=== PATIENT | female | born 1985 | race Two or more races ===

== ENCOUNTER 2021-10-21 22:32 | Emergency (ER) | payer OTHER ==
[~2021-10-21] VITALS: Ht 157.5 cm; Wt 75.0 kg
[2021-10-21 23:00] VITALS: BP 145/79
--- NOTE | 2021-10-21 23:24 | PHYS DOC ---
General Adult EDM: Chief Complaint: KNEE INJURY HPI: HPI: Patient is a 36 year old female who presents the ED today complaining of right elbow pain, right forearm pain, right knee pain, symptoms began after being tackled in baseball. Patient states she was at the [employer] game, she tried catching a fowl ball and 5 boys tackled her. Patient denies any loss of consciousness. States most of her pain on the right knee is on ambulation as well as range of motion. Reports pain on the right elbow and forearm on range of motion. Denies anything specifically relieving the pain. Review of Systems: Review of Systems: Constitutional: Denies fever or chills. [] Musculoskeletal: Reports right elbow pain, right forearm pain, right knee pain Integument: Denies rash. [] Neurologic: Denies headache, focal weakness or sensory changes. [] Psychiatric: Denies depression or anxiety. [] Heart Score: C/O Chest Pain: N/A Risk Factors: Risk Factors: DM, Current or recent (<one month) smoker, HTN, HLP, family hi story of CAD, obesity. Risk Scores: Score 0 - 3: 2.5% MACE over next 6 weeks - Discharge Home Score 4 - 6: 20.3% MACE over next 6 weeks - Admit for Clinical Observation Score 7 - 10: 72.7% MACE over next 6 weeks - Early Invasive Strategies Current Medications: Current Medications Medications (Trade) Dose Ordered Sig/Saroj Start Time Stop Time Status Last Admin Dose Admin Acetaminophen/ Hydrocodone Bitart (Lortab 5/325) 2 tab 1X ONCE 10/21/21 23:15 10/21/21 23:16 UNV Naproxen (Naprosyn) 500 mg 1X STAT 10/21/21 23:08 10/21/21 23:09 UNV Physical Exam: PE: Constitutional: Well developed, well nourished, no acute distress, non-toxic appearance. [] Skin: Warm, dry, no erythema, no rash. [] Back: No tenderness, no CVA tenderness. [] Extremities: Right upper extremity with no obvious deformity. Tenderness on palpation of the right elbow, limited range of motion to the right elbow mostly due to pain. Tenderness on palpation of the right mid forearm. Full range of motion to the right fingers, adequate radial, medial, ulnar sensation to the right fingers. +2 right radial pulse. Cap refill less than 2 seconds to right fingers. Right knee with no obvious deformity. Tenderness on the anterior right knee, bruising noted on the anterior right knee. Range of motion is limited to the right knee due to pain. +2 right pedal pulse. Cap refill less than 2 seconds of right lower extremity Neurologic: Alert and oriented X 3, normal motor function, normal sensory function, no focal deficits noted. [] Psychologic: Affect normal, judgement normal, mood normal. [] EKG: EKG: [] Radiology/Procedures: Radiology/Procedures: []PROCEDURE: KNEE RIGHT 3V Right knee x-rays 3 views HISTORY: Right knee injury and pain. FINDINGS: Old healed traumatic deformity proximal fibula. No acute fracture. No dislocation. No bone lesion. No arthritic change. Soft tissues are normal. IMPRESSION: No acute osseous injury. Electronically signed by: Debora Caro MD (10/21/2021 11:37 PM) [facility] DICTATED and SIGNED BY: DEBORA CARO MD DATE: 10/21/21 6903 PROCEDURE: FOREARM RIGHT Right elbow x-rays 3 views HISTORY: Right arm injury and pain. FINDINGS: No abnormal elevation of the fat pads to suggest the presence of a joint effusion. No fracture. No dislocation. Soft tissues unremarkable. IMPRESSION: No acute osseous injury. Right forearm x-rays 2 views HISTORY: Arm injury and pain. FINDINGS: No fracture. No dislocation. No bone lesion. Vascular groove proximal ulnar shaft. Soft tissues are unremarkable. IMPRESSION: No acute osseous injury. Electronically signed by: Debora Caro MD (10/21/2021 11:40 PM) [facility] [place] DICTATED and SIGNED BY: DEBORA CARO MD DATE: 10/21/21 2796 Course & Med Decision Making: Course & Med Decision Making Pertinent Labs and Imaging studies reviewed. (See chart for details) This is a 36-year-old female patient presented to the ED today with right elbow pain, right forearm pain, right knee pain after being tackled during basketball. Right knee x-rays, right forearm and right elbow x-rays are negative for any acute findings. Jaycob bandage was applied to the right forearm/right elbow and right knee. Ice elevation encouraged. Follow-up with Ortho in 1 week if pain persist Dragon Disclaimer: Dragon Disclaimer: This electronic medical record was generated, in whole or in part, using a voice recognition dictation system. Departure Departure Impression: Primary Impression: Sprain of right elbow Qualified Codes: S53.401A - Unspecified sprain of right elbow, initial encounter Additional Impressions: Right forearm pain Right knee pain Qualified Codes: M25.561 - Pain in right knee Disposition: 01 HOME / SELF CARE / HOMELESS Condition: STABLE Referrals: HARJIT ALEJANDRO DO (PCP) follow up with your doctor in 1-2 weeks ROSAS GUZMÁN II, MD follow up in 1 week Patient Instructions: Joint Sprain, Knee Pain, [place] Additional Instructions: You were evaluated in the emergency room for pain. Your right elbow x-rays, right forearm and right knee x-rays are negative for any acute findings. Please wear the Jaycob bandage as provided as tolerated, try to ice and elevate the affected extremities. Take the prescribed medications as needed for pain Scripts Cyclobenzaprine Hcl (CYCLOBENZAPRINE HCL) 10 Mg Tablet 1 TAB PO TID, #30 TAB Prov: WILLIAN ALDANA APRN 10/22/21 Naproxen (NAPROXEN) 500 Mg Tablet 1 TAB PO BID for pain, #14 TAB 0 Refills Prov: WILLIAN ALDANA APRN 10/22/21 WILLIAN ALDANA APRN Oct 21, 2021 23:24
[2021-10-21] MEDS ORDERED: HYDROcodone/APAP 5/325MG 1 TAB TABLET PO ONE (23:30)
[2021-10-21] MEDS ORDERED: NAPROXEN 500 MG TABLET PO ONE (23:30)
--- NOTE | 2021-10-21 23:40 | RAD ---
Right knee x-rays 3 views HISTORY: Right knee injury and pain. FINDINGS: Old healed traumatic deformity proximal fibula. No acute fracture. No dislocation. No bone lesion. No arthritic change. Soft tissues are normal. IMPRESSION: No acute osseous injury. Electronically signed by: Aj Caro MD (10/21/2021 11:37 PM) [facility]
--- NOTE | 2021-10-21 23:43 | RAD ---
Right elbow x-rays 3 views HISTORY: Right arm injury and pain. FINDINGS: No abnormal elevation of the fat pads to suggest the presence of a joint effusion. No fract ure. No dislocation. Soft tissues unremarkable. IMPRESSION: No acute osseous injury. Right forearm x-rays 2 views HISTORY: Arm injury and pain. FINDINGS: No fracture. No dislocation. No bone lesion. Vascular groove proximal ulnar shaft. Soft tis sues are unremarkable. IMPRESSION: No acute osseous injury. Electronically signed by: Aj Caro MD (10/21/2021 11:40 PM) [facility]
[2021-10-22] MEDS ORDERED: CYCL10TA19 PO (00:03)
[2021-10-22] MEDS ORDERED: NAPR-514 PO (00:03)
== END 2021-10-22 01:21 | disposition home or self-care (01) ==
LOC: ER 22:32
DX: S53.401A Unspecified sprain of right elbow, initial encounter (principal); M79.631 Pain in right forearm; M25.561 Pain in right knee; W03.XXXA Other fall on same level due to collision with another person, initial encounter; Y93.64 Activity, baseball; Y92.89 Other specified places as the place of occurrence of the external cause; Y99.8 Other external cause status
CPT/HCPCS: 73080; 73090; 73562; 99284; A6450